=== PATIENT | male | born 1950 | race African-American/Black ===

== ENCOUNTER 2020-04-06 06:07 | Emergency (ER) | payer OTHER ==
[~2020-04-06] VITALS: Ht 172.7 cm; Wt 78.0 kg
[2020-04-06 06:57] LABS: CLARITY URINE CLEAR (CLEAR); COLOR URINE YELLOW (YELLOW); KETONES URINE NEGATIVE (NEGATIVE); LEUKOCYTE ESTERASE URINE NEGATIVE (NEGATIVE); NITRITE URINE NEGATIVE (NEGATIVE); OCCULT BLOOD URINE NEGATIVE (NEGATIVE); PH URINE 6.5 (4.5-8.0); PROTEIN URINE NEGATIVE (NEGATIVE); SPECIFIC GRAVITY URINE 1.008 (1.005-1.030)
[2020-04-06 07:09] LABS: *AMPHETAMINES SCREEN URINE NEGATIVE (NEGATIVE); *BARBITURATES SCREEN URINE NEGATIVE (NEGATIVE); *BENZODIAZEPINES SCREEN URINE NEGATIVE (NEGATIVE)
[2020-04-06 07:10] LABS: *COCAINE SCREEN URINE NEGATIVE (NEGATIVE)
[2020-04-06 07:11] LABS: CANNABINOID URINE SCREEN NEGATIVE (NEGATIVE); METHADONE URINE SCREEN NEGATIVE (NEGATIVE); OPIATES URINE SCREEN NEGATIVE (NEGATIVE); PHENCYCLIDINE URINE SCREEN NEGATIVE (NEGATIVE)
[2020-04-06 07:11] LABS: BASOPHILS % 0.5 % (0.0-2.0); EOSINOPHILS % 2.1 % (0.0-5.0); HEMATOCRIT. 45.1 % (42.0-52.0); HEMOGLOBIN. 15.4 g/dL (14.0-18.0); LYMPHOCYTES % 16.7 % (20.0-50.0); MEAN CORPUSCULAR HEMOGLOBIN 30.1 pg (28.0-32.0); MEAN CORPUSCULAR VOLUME 88.6 fL (80.0-94.0); MONOCYTES % 4.1 % (2.0-8.0); NEUTROPHILS % 76.6 % (40.0-76.0); PLATELET 213 x1000/uL (130-400); RED BLOOD CELL COUNT 5.09 mill/uL (4.7-6.1); RED CELL DISTRIBUTION WIDTH 15.7 % (11.6-14.6)
[2020-04-06 07:15] LABS: CHLORIDE 108 mEq/L (98-107)
[2020-04-06 07:20] LABS: ETHANOL BLOOD < 10 mg/dL
[2020-04-06] MEDS ORDERED: POTASSIUM BICARB/CIT ACID 25 MEQ TABLET.EFF PO NR (08:30)
[2020-04-06 09:22] VITALS: BP 160/85
== END 2020-04-06 09:25 | disposition left against medical advice (07) ==
LOC: ER 06:07
DX: F43.0 Acute stress reaction (principal)
CPT/HCPCS: 36415; 71045; 80053; 80305; 80320; 81003; 82962; 85025; 93005; 99285; G0480

== ENCOUNTER 2022-11-25 13:22 | Inpatient (IN) | payer MEDICAID, OTHER ==
[~2022-11-25] VITALS: Ht 172.7 cm; Wt 72.0 kg
[2022-11-25 15:45] LABS: BASOPHILS % 0.4 % (0.0-2.0); EOSINOPHILS % 0.7 % (0.0-5.0); HEMOGLOBIN. 10.5 g/dL (14.0-18.0); LYMPHOCYTES % 10.3 % (20.0-50.0); MEAN CORPUSCULAR HEMOGLOBIN 24.9 pg (28.0-32.0); MEAN CORPUSCULAR VOLUME 80.1 fL (80.0-94.0); MEAN PLATELET VOLUME 8.5 fl (7.4-10.4); MONOCYTES % 5.7 % (2.0-8.0); NEUTROPHILS % 82.9 % (40.0-76.0); PLATELET 286 x1000/uL (130-400); RED BLOOD CELL COUNT 4.24 mill/uL (4.7-6.1); RED CELL DISTRIBUTION WIDTH 21.2 % (11.6-14.6)
[2022-11-25 15:53] LABS: CHLORIDE 111 mEq/L (98-107)
[2022-11-25 16:02] LABS: ETHANOL BLOOD < 10 mg/dL
[2022-11-25] MEDS ORDERED: CLOPIDOGREL 75MG TABLET PO ONE (19:45)
[2022-11-25] MEDS ORDERED: ASPIRIN 81MG EC TABLET PO ONE (19:45)
[2022-11-25] MEDS ORDERED: LORAZEPAM 0.5MG TABLET PO PRN (20:30)
[2022-11-25] MEDS ORDERED: DIPHENHYDRAMINE 50MG/ML VIAL IV PRN (20:30)
[2022-11-25] MEDS ORDERED: IPRATROPIUM/ALBUTEROL 0.5-3(2.5)MG/3ML NEB HHN PRN (20:30)
[2022-11-25] MEDS ORDERED: GUAIFENESIN 200MG/10ML SUGAR FREE UDC PO PRN (20:30)
[2022-11-25] MEDS ORDERED: ACETAMINOPHEN 325MG TABLET PO PRN ×2 (20:30)
[2022-11-25] MEDS ORDERED: ONDANSETRON HCL 4MG/2ML INJ IV PRN (20:30)
[2022-11-25] MEDS ORDERED: CLONIDINE 0.1MG TABLET PO PRN (20:30)
[2022-11-25] MEDS ORDERED: DOCUSATE SODIUM 100MG CAPSULE PO PRN (20:30)
[2022-11-25 20:32] LABS: CLARITY URINE CLEAR (CLEAR); COLOR URINE YELLOW (YELLOW); KETONES URINE NEGATIVE (NEGATIVE); LEUKOCYTE ESTERASE URINE 2+ (NEGATIVE); NITRITE URINE POSITIVE (NEGATIVE); OCCULT BLOOD URINE NEGATIVE (NEGATIVE); PH URINE 6.5 (4.5-8.0); PROTEIN URINE NEGATIVE (NEGATIVE); SPECIFIC GRAVITY URINE 1.007 (1.005-1.030); UROBILINOGEN URINE 0.2 E.U./dL (0.2-1.0)
[2022-11-25] MEDS: ENOXAPARIN 40MG/0.4ML SYR SUBCUT SCH (21:00)
[2022-11-25] MEDS ORDERED: ZOLPIDEM TARTRATE 5MG TABLET PO PRN (21:30)
[2022-11-25 22:10] LABS: *AMPHETAMINES SCREEN URINE NEGATIVE (NEGATIVE); *BARBITURATES SCREEN URINE NEGATIVE (NEGATIVE); *BENZODIAZEPINES SCREEN URINE NEGATIVE (NEGATIVE); *COCAINE SCREEN URINE NEGATIVE (NEGATIVE); CANNABINOID URINE SCREEN NEGATIVE (NEGATIVE); METHADONE URINE SCREEN NEGATIVE (NEGATIVE); OPIATES URINE SCREEN NEGATIVE (NEGATIVE); PHENCYCLIDINE URINE SCREEN NEGATIVE (NEGATIVE)
[2022-11-25] MEDS: AMLODIPINE 5MG TABLET PO SCH (23:02)
[2022-11-25] MEDS ORDERED: PIPERACILLIN/TAZOBACTAM 3.375GM/50ML PREMIX IV SCH (23:30)
[2022-11-25] MEDS ORDERED: PIPERACILLIN/TAZ 3.375G PREMIX 50 ML IV NR (23:45)
[2022-11-26] MEDS ORDERED: VANCOMYCIN 1.25GM PMX (XELLIA) 250 ML IV NR (00:30)
[2022-11-26 01:51] LABS: CREATINE KINASE MB FRACTION 7.6 ng/mL (0.5-3.6)
[2022-11-26 02:23] LABS: FOLIC ACID (FOLATE) SERUM 4.9 ng/mL (>5.38)
[2022-11-26] MEDS: DEXT 5%/0.9% NACL 1,000 ML IV SCH ×2 (04:03→16:37)
[2022-11-26 05:22] LABS: BASOPHILS % 0.4 % (0.0-2.0); EOSINOPHILS % 2.3 % (0.0-5.0); HEMATOCRIT. 35.3 % (42.0-52.0); HEMOGLOBIN. 11.1 g/dL (14.0-18.0); LYMPHOCYTES % 14.1 % (20.0-50.0); MEAN CORPUSCULAR HEMOGLOBIN 24.8 pg (28.0-32.0); MEAN CORPUSCULAR VOLUME 79.2 fL (80.0-94.0); MEAN PLATELET VOLUME 8.9 fl (7.4-10.4); NEUTROPHILS % 75.2 % (40.0-76.0); PLATELET 303 x1000/uL (130-400); RED BLOOD CELL COUNT 4.46 mill/uL (4.7-6.1); RED CELL DISTRIBUTION WIDTH 21.6 % (11.6-14.6)
[2022-11-26] MEDS ORDERED: PIPERACILLIN/TAZOBACTAM 3.375G in DEXT 5% WATER 50ML IV SCH (06:00)
[2022-11-26 09:58] LABS: CHLORIDE 109 mEq/L (98-107)
[2022-11-26 10:09] LABS: PHOSPHORUS 3.4 mg/dL (2.5-4.9)
[2022-11-26] MEDS ORDERED: ALBUTEROL (0.083%) 2.5MG/3ML NEB HHN PRN (10:30)
[2022-11-26] MEDS ORDERED: IPRATROPIUM BROMIDE (0.02%) 0.5MG/2.5ML NEB HHN PRN (10:30)
[2022-11-26 12:00] VITALS: BP 118/81
[2022-11-26] MEDS: AMLODIPINE 5MG TABLET PO SCH (13:44)
[2022-11-26] MEDS ORDERED: PIPERACILLIN/TAZOBACTAM 3.375 G in DEXTROSE 5% WATER 50 ML IV SCH (14:00)
[2022-11-26 15:24] VITALS: BP 167/100
[2022-11-26 16:00] VITALS: BP 165/88
[2022-11-26] MEDS ORDERED: VANCOMYCIN 1G PREMIX 200 ML IV SCH (18:00)
[2022-11-26] MEDS: CEFTRIAXONE 1,000 MG in DEXTROSE 5% WATER 50 ML IV SCH (18:20)
[2022-11-26] MEDS ORDERED: CLONIDINE 0.1MG TABLET PO PRN (18:30)
[2022-11-26 20:00] VITALS: BP 175/88
[2022-11-26] MEDS: ENOXAPARIN 40MG/0.4ML SYR SUBCUT SCH (21:22)
[2022-11-27] VITALS: BP 143/74
[2022-11-27] MEDS: DEXT 5%/0.9% NACL 1,000 ML IV SCH ×2 (02:40→16:00)
[2022-11-27 04:00] VITALS: BP 155/83
[2022-11-27 08:00] VITALS: BP 144/79
[2022-11-27 08:08] LABS: HEMATOCRIT 32.4 % (42.0-52.0); HEMOGLOBIN 10.7 g/dL (14.0-18.0); MEAN CORPUSCULAR HEMOGLOBIN 25.3 pg (28.0-32.0); MEAN CORPUSCULAR VOLUME 76.8 fL (80.0-94.0); PLATELET 343 x1000/uL (130-400); RED BLOOD CELL COUNT 4.22 mill/uL (4.7-6.1); RED CELL DISTRIBUTION WIDTH 20.2 % (11.6-14.6)
[2022-11-27] MEDS: CLOPIDOGREL 75MG TABLET PO SCH ×2 (09:14→09:24)
[2022-11-27] MEDS: FAMOTIDINE 20MG/2ML VIAL IV SCH ×2 (09:15→09:24)
[2022-11-27] MEDS: ASPIRIN 81MG EC TABLET PO SCH (09:24)
[2022-11-27 09:44] LABS: CHLORIDE 105 mEq/L (98-107)
[2022-11-27 12:00] VITALS: BP 167/95
[2022-11-27] MEDS ORDERED: MENTHOL/LANOLIN/CALAMINE/ZN OX OINT 71GM TOP PRN (12:45)
[2022-11-27 16:00] VITALS: BP 138/87
[2022-11-27] MEDS: CEFTRIAXONE 1,000 MG in DEXTROSE 5% WATER 50 ML IV SCH (17:48)
[2022-11-27 20:00] VITALS: BP 175/86
[2022-11-27] MEDS: ENOXAPARIN 40MG/0.4ML SYR SUBCUT SCH (21:29)
[2022-11-28] VITALS: BP 134/80
[2022-11-28 04:00] VITALS: BP 134/85
[2022-11-28] MEDS: DEXT 5%/0.9% NACL 1,000 ML IV SCH ×2 (05:49→18:20)
[2022-11-28 08:00] VITALS: BP 89/59
[2022-11-28] MEDS ORDERED: AMLODIPINE 5MG TABLET PO SCH (09:00)
[2022-11-28] MEDS: CLOPIDOGREL 75MG TABLET PO SCH (09:13)
[2022-11-28] MEDS: FERROUS SULFATE 325MG TABLET PO SCH (09:13)
[2022-11-28] MEDS: ASPIRIN 81MG EC TABLET PO SCH (09:13)
[2022-11-28] MEDS: FAMOTIDINE 20MG/2ML VIAL IV SCH (09:13)
[2022-11-28] MEDS ORDERED: MIDODRINE HCL 5MG TABLET PO SCH (11:00)
[2022-11-28 11:13] LABS: BG BASE EXCESS -0.1 mmol/L (-2.0-2.0); BG CARBOXYHEMOGLOBIN 0.3 % (0.5-1.5); BG DEOXYHEMOGLOBIN 4.3 % (0.0-5.0); BG FRACTION INSPIRED OXYGEN 21; BG HCO3 ACT 23.5 mmol/L (22.0-26.0); BG METHEMOGLOBIN 0.1 % (0.0-1.5); BG OXYGEN SATURATION 95.7 % (92.0-98.5); BG OXYHEMOGLOBIN 95.3 % (94.0-97.0); BG PH 7.445 (7.350-7.450); BG PO2 81.7 mmHg (75.0-100.0); BG SAMPLE SITE RIGHT RADIAL; BG TOTAL HEMOGLOBIN 12.2 g/dL (12.0-18.0); BG VENT MODE ROOM AIR
[2022-11-28 11:54] VITALS: BP 153/82
[2022-11-28 16:00] VITALS: BP 130/77
[2022-11-28] MEDS: CEFTRIAXONE 1,000 MG in DEXTROSE 5% WATER 50 ML IV SCH (16:38)
[2022-11-28 16:44] LABS: CHLORIDE 104 mEq/L (98-107)
[2022-11-28 20:00] VITALS: BP 146/80
[2022-11-28 20:11] LABS: HEMATOCRIT 33.6 % (42.0-52.0); HEMOGLOBIN 10.8 g/dL (14.0-18.0); MEAN CORPUSCULAR HEMOGLOBIN 24.9 pg (28.0-32.0); MEAN CORPUSCULAR VOLUME 77.3 fL (80.0-94.0); PLATELET 316 x1000/uL (130-400); RED BLOOD CELL COUNT 4.35 mill/uL (4.7-6.1); RED CELL DISTRIBUTION WIDTH 18.9 % (11.6-14.6)
[2022-11-28] MEDS: ENOXAPARIN 40MG/0.4ML SYR SUBCUT SCH (22:04)
[2022-11-29] VITALS: BP_SYST 153; BP_SYST 173; BP_DIAS 93
[2022-11-29 04:00] VITALS: BP 152/56
[2022-11-29 06:12] LABS: HEMATOCRIT 34.6 % (42.0-52.0); HEMOGLOBIN 11.3 g/dL (14.0-18.0); MEAN CORPUSCULAR HEMOGLOBIN 25.2 pg (28.0-32.0); MEAN CORPUSCULAR VOLUME 77.4 fL (80.0-94.0); PLATELET 309 x1000/uL (130-400); RED BLOOD CELL COUNT 4.47 mill/uL (4.7-6.1); RED CELL DISTRIBUTION WIDTH 19.2 % (11.6-14.6)
[2022-11-29 06:15] LABS: CHLORIDE 106 mEq/L (98-107)
[2022-11-29] MEDS: ASPIRIN 81MG EC TABLET PO SCH (08:27)
[2022-11-29] MEDS: FAMOTIDINE 20MG/2ML VIAL IV SCH (08:27)
[2022-11-29] MEDS: CLOPIDOGREL 75MG TABLET PO SCH (08:27)
[2022-11-29] MEDS: FERROUS SULFATE 325MG TABLET PO SCH (08:27)
[2022-11-29] MEDS: DEXT 5%/0.9% NACL 1,000 ML IV SCH (08:28)
[2022-11-29 08:30] VITALS: BP 171/68
[2022-11-29 11:57] VITALS: BP 155/76
[2022-11-29] MEDS ORDERED: AMLODIPINE 5MG TABLET PO SCH (12:15)
[2022-11-29] MEDS ORDERED: FUROSEMIDE 100MG/10ML VIAL IVP SCH (14:45)
[2022-11-29 16:57] VITALS: BP 158/98
[2022-11-29] MEDS: CEFTRIAXONE 1,000 MG in DEXTROSE 5% WATER 50 ML IV SCH (17:49)
[2022-11-29 20:55] VITALS: BP 157/80
[2022-11-29] MEDS: ENOXAPARIN 40MG/0.4ML SYR SUBCUT SCH (20:58)
[2022-11-30] VITALS: BP 147/77
[2022-11-30 04:00] VITALS: BP 174/78
[2022-11-30 07:02] LABS: HEMATOCRIT 33.4 % (42.0-52.0); HEMOGLOBIN 10.8 g/dL (14.0-18.0); MEAN CORPUSCULAR VOLUME 76.9 fL (80.0-94.0); PLATELET 290 x1000/uL (130-400); RED BLOOD CELL COUNT 4.34 mill/uL (4.7-6.1); RED CELL DISTRIBUTION WIDTH 19.1 % (11.6-14.6)
[2022-11-30 07:18] LABS: CHLORIDE 106 mEq/L (98-107)
[2022-11-30 08:00] VITALS: BP 162/77
[2022-11-30] MEDS ORDERED: SODIUM POLYSTYRENE SULFONATE 15 G/60 ML BOT PO NR (08:15)
[2022-11-30] MEDS: POLYETHYLENE GLYCOL 3350 (17GM) 1 DOSE PACK PO SCH (10:53)
[2022-11-30] MEDS: FUROSEMIDE 40MG/4ML VIAL IVP SCH (10:53)
[2022-11-30] MEDS: AMLODIPINE 10MG TABLET PO SCH (10:54)
[2022-11-30] MEDS: FAMOTIDINE 20MG/2ML VIAL IV SCH (10:55)
[2022-11-30] MEDS: CLOPIDOGREL 75MG TABLET PO SCH (10:55)
[2022-11-30] MEDS: ASPIRIN 81MG EC TABLET PO SCH (10:55)
[2022-11-30] MEDS: DEXT 5%/0.9% NACL 1,000 ML IV SCH ×2 (10:59→23:43)
[2022-11-30 12:00] VITALS: BP 125/58
[2022-11-30 16:00] VITALS: BP 120/60
[2022-11-30] MEDS: CEFTRIAXONE 1,000 MG in DEXTROSE 5% WATER 50 ML IV SCH (18:46)
[2022-11-30 20:00] VITALS: BP 155/87
[2022-11-30] MEDS: ENOXAPARIN 40MG/0.4ML SYR SUBCUT SCH (21:00)
[2022-11-30] MEDS: HYDROXYZINE 25MG TABLET PO PRN (23:18)
[2022-12-01] VITALS: BP 151/84
[2022-12-01 04:00] VITALS: BP 148/82
[2022-12-01 06:45] LABS: HEMATOCRIT 32.1 % (42.0-52.0); HEMOGLOBIN 10.4 g/dL (14.0-18.0); MEAN CORPUSCULAR HEMOGLOBIN 24.5 pg (28.0-32.0); MEAN CORPUSCULAR VOLUME 76.1 fL (80.0-94.0); PLATELET 307 x1000/uL (130-400); RED BLOOD CELL COUNT 4.22 mill/uL (4.7-6.1); RED CELL DISTRIBUTION WIDTH 19.2 % (11.6-14.6)
[2022-12-01 08:00] VITALS: BP 151/94
[2022-12-01 08:34] LABS: CHLORIDE 104 mEq/L (98-107)
[2022-12-01] MEDS: AMLODIPINE 10MG TABLET PO SCH (09:16)
[2022-12-01] MEDS: CLOPIDOGREL 75MG TABLET PO SCH (09:16)
[2022-12-01] MEDS: FERROUS SULFATE 325MG TABLET PO SCH (09:16)
[2022-12-01] MEDS: FAMOTIDINE 20MG/2ML VIAL IV SCH (09:16)
[2022-12-01] MEDS: ASPIRIN 81MG EC TABLET PO SCH (09:16)
[2022-12-01] MEDS: FUROSEMIDE 40MG/4ML VIAL IVP SCH (09:16)
[2022-12-01] MEDS: POLYETHYLENE GLYCOL 3350 (17GM) 1 DOSE PACK PO SCH (09:16)
[2022-12-01 12:00] VITALS: BP 140/89
[2022-12-01] MEDS ORDERED: POTASSIUM CHLORIDE 20MEQ TABLET SR PO NR (13:15)
[2022-12-01] MEDS: LOSARTAN POTASSIUM 50 MG TABLET PO SCH (13:40)
[2022-12-01] MEDS: DEXT 5%/0.9% NACL 1,000 ML IV SCH (13:41)
[2022-12-01 16:00] VITALS: BP 138/79
[2022-12-01] MEDS: CEFTRIAXONE 1,000 MG in DEXTROSE 5% WATER 50 ML IV SCH (16:39)
[2022-12-01 20:00] VITALS: BP 141/88
[2022-12-01] MEDS: HYDROXYZINE 25MG TABLET PO PRN (21:15)
[2022-12-01] MEDS: CARVEDILOL 3.125 MG TABLET PO SCH (21:16)
[2022-12-01] MEDS: ENOXAPARIN 40MG/0.4ML SYR SUBCUT SCH (21:16)
[2022-12-01] MEDS ORDERED: CLOP-31 PO (23:19)
[2022-12-01] MEDS ORDERED: FERR-63 PO (23:19)
[2022-12-01] MEDS ORDERED: LOSA50TA3 PO (23:19)
[2022-12-01] MEDS ORDERED: FAMO20TA8 PO (23:19)
[2022-12-01] MEDS ORDERED: MENT71OI TOP (23:19)
[2022-12-01] MEDS ORDERED: ASPI-1406 PO (23:19)
[2022-12-01] MEDS ORDERED: POLY17PO3 PO (23:19)
[2022-12-01] MEDS ORDERED: AMLO10TA80 PO (23:19)
[2022-12-01] MEDS ORDERED: COR3 PO (23:19)
[2022-12-02 00:14] VITALS: BP 153/74
[2022-12-02] MEDS: DEXT 5%/0.9% NACL 1,000 ML IV SCH ×2 (01:56→16:00)
[2022-12-02 04:00] VITALS: BP 174/95
[2022-12-02 06:33] LABS: BASOPHILS % 0.6 % (0.0-2.0); EOSINOPHILS % 2.1 % (0.0-5.0); HEMATOCRIT. 31.7 % (42.0-52.0); HEMOGLOBIN. 10.3 g/dL (14.0-18.0); LYMPHOCYTES % 11.5 % (20.0-50.0); MEAN CORPUSCULAR HEMOGLOBIN 24.9 pg (28.0-32.0); MEAN CORPUSCULAR VOLUME 76.5 fL (80.0-94.0); MEAN PLATELET VOLUME 8.1 fl (7.4-10.4); MONOCYTES % 7.3 % (2.0-8.0); NEUTROPHILS % 78.5 % (40.0-76.0); PLATELET 307 x1000/uL (130-400); RED BLOOD CELL COUNT 4.15 mill/uL (4.7-6.1); RED CELL DISTRIBUTION WIDTH 18.5 % (11.6-14.6)
[2022-12-02 08:00] VITALS: BP 148/79
[2022-12-02 11:12] LABS: CHLORIDE 107 mEq/L (98-107)
[2022-12-02 11:18] LABS: PHOSPHORUS 3.3 mg/dL (2.5-4.9)
[2022-12-02] MEDS: ENOXAPARIN 40MG/0.4ML SYR SUBCUT SCH (11:38)
[2022-12-02] MEDS: CLOPIDOGREL 75MG TABLET PO SCH (11:40)
[2022-12-02] MEDS: CARVEDILOL 3.125 MG TABLET PO SCH ×2 (11:41→20:41)
[2022-12-02] MEDS: LOSARTAN POTASSIUM 50 MG TABLET PO SCH (11:41)
[2022-12-02] MEDS: ASPIRIN 81MG EC TABLET PO SCH (11:41)
[2022-12-02] MEDS: FAMOTIDINE 20MG TABLET PO SCH (11:41)
[2022-12-02] MEDS: POLYETHYLENE GLYCOL 3350 (17GM) 1 DOSE PACK PO SCH (11:42)
[2022-12-02] MEDS: FERROUS SULFATE 325MG TABLET PO SCH (11:42)
[2022-12-02] MEDS: FUROSEMIDE 40MG/4ML VIAL IVP SCH (11:42)
[2022-12-02] MEDS: AMLODIPINE 10MG TABLET PO SCH (11:59)
[2022-12-02 12:00] VITALS: BP 129/64
[2022-12-02 16:00] VITALS: BP 146/66
[2022-12-02 20:00] VITALS: BP 110/60
[2022-12-03] VITALS: BP 146/68
[2022-12-03 04:00] VITALS: BP 148/73
[2022-12-03] MEDS: DEXT 5%/0.9% NACL 1,000 ML IV SCH (05:24)
[2022-12-03 08:00] VITALS: BP 133/90
[2022-12-03] MEDS: FAMOTIDINE 20MG TABLET PO SCH (08:33)
[2022-12-03] MEDS: ASPIRIN 81MG EC TABLET PO SCH (08:33)
[2022-12-03] MEDS: FUROSEMIDE 40MG/4ML VIAL IVP SCH (08:33)
[2022-12-03] MEDS: AMLODIPINE 10MG TABLET PO SCH (08:33)
[2022-12-03] MEDS: CLOPIDOGREL 75MG TABLET PO SCH (08:34)
[2022-12-03] MEDS: FERROUS SULFATE 325MG TABLET PO SCH (08:34)
[2022-12-03] MEDS: LOSARTAN POTASSIUM 50 MG TABLET PO SCH (08:34)
[2022-12-03] MEDS: POLYETHYLENE GLYCOL 3350 (17GM) 1 DOSE PACK PO SCH (08:34)
[2022-12-03] MEDS: CARVEDILOL 3.125 MG TABLET PO SCH (08:34)
[2022-12-03 11:04] VITALS: BP 131/85
[2022-12-03 12:00] VITALS: BP 114/51
== END 2022-12-03 13:55 | disposition hospice, home (50) | DRG 52 ==
LOC: ER 13:22 → MICUSO 19:41 → EDBD 19:41 → MERGE 19:41 → EDBEDREQTM 19:59 → EDBEDREQ 19:59 → SUPCPDRO 21:14 → 7WST 11-26 10:23
PROVIDERS: ADMIT Internal Medicine; ATTEND Internal Medicine
PROC: 02HV33Z Insertion of Infusion Device into Superior Vena Cava, Percutaneous Approach (ICD-10-PCS; principal; 2022-11-28)
PROC: B548ZZA Ultrasonography of Superior Vena Cava, Guidance (ICD-10-PCS; 2022-11-28)
DX: G93.41 Metabolic encephalopathy (principal); E46 Unspecified protein-calorie malnutrition; I42.9 Cardiomyopathy, unspecified; F03.90 Unspecified dementia, unspecified severity, without behavioral disturbance, psychotic disturbance, mood disturbance, and anxiety; D64.9 Anemia, unspecified; Z68.24 Body mass index [BMI] 24.0-24.9, adult; N39.0 Urinary tract infection, site not specified; I10 Essential (primary) hypertension; E87.6 Hypokalemia; Z79.02 Long term (current) use of antithrombotics/antiplatelets; Z86.73 Personal history of transient ischemic attack (TIA), and cerebral infarction without residual deficits; Z79.899 Other long term (current) drug therapy; Z85.028 Personal history of other malignant neoplasm of stomach
CPT/HCPCS: 36415; 36573; 36600; 71045; 80048; 80053; 80061; 80305; 80320; 81003; 82375; 82550; 82553; 82607; 82746; 82805; 83036; 83540; 83550; 83605; 83735; 83880; 84100; 84145; 84484; 85025; 85027; 92610; 93005; 93306; 93880; 97116; 97162; 97166; 97530; 97535; 99285; A6261; C1725; C1893; J0696; J1650; J1940; J2543; J3370; J3490; J7042; J7060; G0480